=== PATIENT | female | born 1990 | race Caucasian/White ===

== ENCOUNTER 2016-02-24 12:33 | Emergency (ER) ==
[2016-02-24 12:46] VITALS: BP 116/72
[2016-02-24 13:07] LABS: URINE SOURCE CLEAN CATCH
[2016-02-24 13:11] LABS: BILIRUBIN URINE 3+ (NEGATIVE); BLOOD URINE 2+ (NEGATIVE); CLARITY SL. CLOUDY (CLEAR); COLOR AMBER; GLUCOSE URINE NEGATIVE (NEGATIVE); LEUKOCYTES URINE NEGATIVE (NEGATIVE); NITRITE URINE POSITIVE (NEGATIVE); PROTEIN URINE 2+(100 mg/dL) mg/dL (NEGATIVE)
--- NOTE | 2016-02-24 13:18 | PROVIDER DOCUMENTATION ---
HPI-Abdominal Pain/GI Problem <Angella Koch Milagro - Last Filed: 02/24/16 13:18> - General Source: patient - History of Present Illness-ABD Abdominal Pain Onset Location: reports: suprapubic Pain Radiation: reports: no radiation Quality of Pain: reports: aching, cramping Severity in ED: reports: mild, moderate Onset/Duration: reports: gradual, 24 hours ago Timing: reports: still present, constant Activities at Onset: reports: none Modifying Factors: worse with: urinating Associated Symptoms: reports: genitourinary problems. denies: back/neck pain, diarrhea, fever/chills, sinus congestion/drainage, vomiting Similar Symptoms Previously?: Yes Recently seen or treated by another doctor?: No <Casa Valente - Last Filed: 02/24/16 13:25> - General Chief Complaint: UTI Symptoms Stated Complaint: POSSIBLE UTI Time Seen by Provider: 02/24/16 13:16 Allergies/Adverse Reactions: Patient Allergies Allergy/AdvReac Type Severity Reaction Status Date / Time hydrocodone Allergy ITCHING Verified 04/25/12 05:15 - History of Present Illness-ABD Nature of Presenting Problems: patient is a25 y/o F that presents with suprapubic cramping, dysuria, and urinary frequency x 24 hours. denies fever/chills, n/v/d. (Casa Valente) Review of Systems - Adult - REVIEW OF SYSTEMS - ADULT Constitutional: denies: chills, fever Eyes: reports: no symptoms reported Ears, Nose, Mouth & Throat: reports: no symptoms reported Cardiovascular: denies: chest pain, palpitations, syncope Respiratory: denies: cough, shortness of breath, wheezing Gastrointestinal: reports: abdominal pain. denies: diarrhea, nausea, vomiting Genitourinary: reports: dysuria, frequency, urgency Musculoskeletal: reports: no symptoms reported Integumentary: reports: no symptoms reported Neurological: reports: no symptoms reported Psychiatric: reports: no symptoms reported Endocrine: reports: no symptoms reported Hematologic/Lymphatic: reports: no symptoms reported Allergic/Immunologic: reports: no symptoms reported All Other Systems: Reviewed and Negative <Casa Valente - Last Filed: 02/24/16 13:25> Past History - Adult - PAST MEDICAL HISTORY-ADULT Review of Records: reports: Old Records Reviewed, Nursing Assessment Review, Medications Reviewed - PRIOR SURGERIES/PROCEDURES Surgical/Procedure History: reports: none - IMMUNIZATION STATUS Childhood Immunizations: See Nurse Assessment Flu Vaccine: See Nurse Assessment - FAMILY HISTORY Family History: reviewed, not pertinent - SOCIAL HISTORY Smoking: non-smoker Living Situation: family <Casa Valente - Last Filed: 02/24/16 13:25> Physical Exam-General - PHYSICAL EXAM-ADULT Initial Vital Signs Reviewed: Yes - CONSTITUTIONAL General Appearance: alert, no apparent distress - EYES Eyes: PERRL/EOMI, pink conjunctivae - HEAD, EARS, NOSE, MOUTH & THROAT HENMT: normocephalic/atraumatic, moist mucous membranes, normal ENT inspection, pharynx normal - NECK Neck: full range of motion, normal inspection - RESPIRATORY Respiratory: lungs clear, normal breath sounds, no respiratory distress, no accessory muscle use - CARDIOVASCULAR Cardiovascular: regular rate, rhythm, no edema, no murmur - GASTROINTESTINAL (ABDOMEN) Abdominal Exam: normal bowel sounds, soft, no organomegaly, no pulsatile mass, tenderness (suprapubicpain) - MUSCULOSKELETAL Back Exam: no CVA tenderness, no vertebral tenderness Extremity: normal range of motion, normal inspection - SKIN Integumentary: normal color, warm/dry - NEUROLOGIC Neurologic: grossly normal, no motor/sensory deficits - PSYCHIATRIC Psych/Mental Status: normal mood/affect, normal thought content, normal thought process, oriented x 3 <Casa Valente - Last Filed: 02/24/16 13:25> Progress <Angella Koch - Last Filed: 02/24/16 13:18> <Casa Valente - Last Filed: 02/24/16 13:25> - PLAN OF CARE/RESULTS Progress/Plan/Lab Results: Vital Signs Temp Pulse Resp BP Pulse Ox 02/24/16 12:45 98 F 85 18 116/72 100 hydrocodone Allergy (Verified 04/25/12 05:15) ITCHING Sulfamethoxazole/Trimethoprim [Bactrim Ds Tablet] 1 each PO BID #10 tablet 02/23 Laboratory 02/24/16 13:00 Urine Source CLEAN CATCH Urine Color JEAN-PAUL Urine Clarity SL. CLOUDY A Urine pH 5.0 Ur Specific [place] 1.020 Urine Protein 2+(100 mg/dL) A Urine Ketones NEGATIVE Urine Blood 2+ A Urine Nitrite POSITIVE A Urine Bilirubin 3+ A Urine Urobilinogen 3+(8 mg/dL) Urine Microscopic RBC 20-40 A Urine WBC NEGATIVE Urine Microscopic WBC <10 Ur Epithelial Cells <10 Urine Bacteria 3+ Urine Glucose NEGATIVE Orders Category Date Time Status URINALYSIS PL W/POSS RFLX CULT [URINALYSIS] Stat Lab 02/24/16 13:00 Completed URINE CULTURE [RM] Routine Lab 02/24/16 13:21 Ordered pt will be d/c home with rx,f/u with pcp, pt was clinically stable (Casa Valente) Departure - Departure Time of Disposition Order: 13:18 Certified Medical Emergency: Emergent <Angella Koch - Last Filed: 02/24/16 13:18> <Casa Valente - Last Filed: 02/24/16 13:25> - Departure DIAGNOSIS: Acute UTI Disposition: HOME 01 Condition: Stable Additional Instructions: ED Follow Up Instructions: You have been treated by a care provider in the Emergency Department. These instructions are being provided to you so you can have an understanding of how to care for yourself upon discharge. Upon discharge from the Emergency Department, you are responsible for making arrangements for follow-up care by a physician of your choice. Take all prescribed medications as directed. Return to the Emergency Department immediately for any new or worsening symptoms. You may call the Physician Referral phone number at [phone] to obtain a list of Physicians who are taking new patients. Prescriptions: Sulfamethoxazole/Trimethoprim [Bactrim Ds Tablet] 1 each PO BID #10 tablet Referrals: None,PCP [Primary Care Provider] - Attestation - Physician/ Mid-level Attestation Patient care was provided by Mid-level provider ([employer] SET UP OPERATOR/PA):: Yes Mid-level provider:: Angella Koch Mid-level documentation review:: The Mid-level provider documentation, treatment plan and medical decision making was reviewed by the physician who agrees with all treatment and medical decision making by the MLP. <Angella Koch - Last Filed: 02/24/16 13:18> - Scribe Verification/Attestation Scribe:: Casa Valente Acting as Scribe for:: Angella Koch Scribe documention review:: This chart was documented by a scribe and accurately reflects the service the provider performed and the decisions made by the provider. - Physician/ Mid-level Attestation Patient care was provided by Mid-level provider (C[employer] MILL SET UP OPERATOR/PA):: Yes Mid-level provider:: Angella Koch Mid-level documentation review:: The Mid-level provider documentation, treatment plan and medical decision making was reviewed by the physician who agrees with all treatment and medical decision making by the MLP. <Casa Valente - Last Filed: 02/24/16 13:25> Physician Attestation
[2016-02-24 13:21] LABS: URINE CULTURE PL NEEDED? YES; URINE EPITHELIAL CELLS <10 /HPF (<10); URINE RBC 20-40 /HPF (<10); URINE WBC <10 /HPF (<10); UROBILINOGEN URINE 3+(8 mg/dL)
== END 2016-02-24 13:31 | disposition home or self-care (01) ==
LOC: P.ED 12:33
DX: N39.0 Urinary tract infection, site not specified (principal); R10.9 Unspecified abdominal pain; R30.0 Dysuria; R35.0 Frequency of micturition; R39.15 Urgency of urination; R10.819 Abdominal tenderness, unspecified site
CPT/HCPCS: 81001; 87088; 99283